=== PATIENT | female | born 1935 | race African-American/Black ===

== ENCOUNTER 2019-01-14 17:36 | Inpatient (IN) | payer MEDICARE, OTHER ==
[~2019-01-14] VITALS: Ht 154.9 cm; Wt 52.6 kg
[~2019-01-14 17:36] MED LIST: FLUT10SP BOTHNSTRLS; LISI-604 PO; LORA10TA7 PO; MELO-106 PO; METH4TAB16 PO; MONT10TA24 PO; OMEP40CA34 PO; PREG75CA PO; SIMV20TA6 PO; ZET10 PO; [UNRECOGNIZED DRUG - CODE] PO
[2019-01-14 19:34] LABS: BASOPHILS % 0.5 % (0.0-2.0); EOSINOPHILS % 1.1 % (0.0-5.0); HEMATOCRIT. 37.8 % (36.0-48.0); HEMOGLOBIN. 12.3 g/dL (12.0-16.0); LYMPHOCYTES % 29.8 % (20.0-50.0); MEAN CORPUSCULAR HEMOGLOBIN 27.8 pg (28.0-32.0); MEAN CORPUSCULAR VOLUME 85.1 fL (81.0-99.0); MONOCYTES % 9.4 % (2.0-8.0); NEUTROPHILS % 59.2 % (40.0-76.0); PLATELET 193 x1000/uL (130-400); RED BLOOD CELL COUNT 4.44 mill/uL (4.2-5.4); RED CELL DISTRIBUTION WIDTH 15.1 % (11.6-14.6)
[2019-01-14 19:37] LABS: CHLORIDE 107 mEq/L (98-107)
[2019-01-14] MEDS ORDERED: HYDRALAZINE HCL 25MG TABLET PO ONE (20:30)
[2019-01-14] MEDS ORDERED: HYDROCODONE/ACETAMINOPHEN 5/325MG TABLET PO ONE (22:15)
[2019-01-15] MEDS ORDERED: CLONIDINE 0.1MG TABLET PO SCH (06:00)
[2019-01-15 10:00] VITALS: BP 165/76
[2019-01-15] MEDS ORDERED: DEXTROSE 50% WATER 50ML SYRINGE IV PRN (11:00)
[2019-01-15] MEDS ORDERED: GUAIFENESIN 200MG/10ML SUGAR FREE UDC PO PRN (11:00)
[2019-01-15] MEDS ORDERED: DOCUSATE SODIUM 100MG CAPSULE PO PRN (11:00)
[2019-01-15] MEDS ORDERED: NA PHOS,M-B/NA PHOS,DI-BA ENEMA 118ML PR PRN (11:00)
[2019-01-15] MEDS ORDERED: IPRATROPIUM/ALBUTEROL 0.5-3(2.5)MG/3ML NEB INH PRN (11:00)
[2019-01-15] MEDS ORDERED: ACETAMINOPHEN 325MG TABLET PO PRN (11:00)
[2019-01-15] MEDS ORDERED: ACETAMINOPHEN 650MG SUPP PR PRN (11:00)
[2019-01-15] MEDS ORDERED: ONDANSETRON HCL 4MG/2ML INJ IV PRN (11:00)
[2019-01-15] MEDS ORDERED: LORAZEPAM 0.5MG TABLET PO PRN (11:00)
[2019-01-15] MEDS ORDERED: MAGNESIUM/ALUMINUM HYDROXIDE/SIMETHICONE 30ML UDC PO PRN (11:00)
[2019-01-15] MEDS ORDERED: CLONIDINE 0.1MG TABLET PO PRN (11:00)
[2019-01-15] MEDS ORDERED: DIPHENHYDRAMINE 50MG/ML VIAL IV PRN (11:00)
[2019-01-15] MEDS ORDERED: HYDROCODONE/ACETAMINOPHEN 5/325MG TABLET PO PRN (11:00)
[2019-01-15] MEDS ORDERED: PNEUMOCOCCAL 23-VAL P-SAC VAC 0.5 ML IM ONE (11:30)
[2019-01-15] MEDS: BLOOD SUGAR DIAGNOSTIC STRIP TEST SCH ×3 (11:45→21:13)
[2019-01-15 12:00] VITALS: BP 120/55
[2019-01-15] MEDS ORDERED: AMLODIPINE 5MG TABLET PO SCH (13:00)
[2019-01-15 13:03] LABS: HEMOGLOBIN. 12.4 g/dL (12.0-16.0); MEAN CORPUSCULAR HEMOGLOBIN 28.1 pg (28.0-32.0); MEAN PLATELET VOLUME 9.4 fl (7.4-10.4); PLATELET 199 x1000/uL (130-400); RED BLOOD CELL COUNT 4.41 mill/uL (4.2-5.4); RED CELL DISTRIBUTION WIDTH 14.7 % (11.6-14.6)
[2019-01-15 13:06] LABS: CHLORIDE 106 mEq/L (98-107)
[2019-01-15] MEDS: ENOXAPARIN 40MG/0.4ML SYR SUBCUT SCH (13:31)
[2019-01-15 13:36] LABS: ATYPICAL LYMPHOCYTES 1; PLATELET ESTIMATE NORMAL
[2019-01-15] MEDS: INSULIN LISPRO 100 UNITS/ML SUBCUT SCH ×3 (14:22→21:00)
[2019-01-15] MEDS: SODIUM CHLORIDE 0.45% 1,000 ML IV SCH (14:23)
[2019-01-15] MEDS ORDERED: REGADENOSON 0.4 MG/5 ML IV NR (15:00)
[2019-01-15 16:00] VITALS: BP 130/62
[2019-01-15] MEDS ORDERED: LEVOFLOXACIN 500MG PREMIX 100 ML IV NR (17:00)
[2019-01-15 17:02] LABS: CREATINE KINASE 102 IU/L (26-192)
[2019-01-15 17:03] LABS: CREATINE KINASE MB FRACTION 1.9 ng/mL (0.5-3.6)
[2019-01-15 18:00] VITALS: BP 130/62
[2019-01-15 20:00] VITALS: BP 115/67
[2019-01-15] MEDS: AMLODIPINE 5MG TABLET PO SCH (21:00)
[2019-01-16] VITALS: BP 139/61
[2019-01-16 04:00] VITALS: BP 138/77
[2019-01-16 06:21] LABS: CHLORIDE 107 mEq/L (98-107)
[2019-01-16 06:32] LABS: LDL CHOLESTEROL 128 mg/dL (5-100)
[2019-01-16 06:34] LABS: HDL CHOLESTEROL 74 mg/dL (40-59); T4 FREE 0.93 ng/dL (0.76-1.46)
[2019-01-16 06:35] LABS: BASOPHILS % 0.6 % (0.0-2.0); EOSINOPHILS % 1.1 % (0.0-5.0); HEMATOCRIT. 37.1 % (36.0-48.0); HEMOGLOBIN. 12.4 g/dL (12.0-16.0); LYMPHOCYTES % 39.1 % (20.0-50.0); MEAN CORPUSCULAR HEMOGLOBIN 28.2 pg (28.0-32.0); MEAN CORPUSCULAR VOLUME 84.5 fL (81.0-99.0); MEAN PLATELET VOLUME 9.2 fl (7.4-10.4); MONOCYTES % 11.1 % (2.0-8.0); NEUTROPHILS % 48.1 % (40.0-76.0); PLATELET 195 x1000/uL (130-400); RED BLOOD CELL COUNT 4.39 mill/uL (4.2-5.4); RED CELL DISTRIBUTION WIDTH 14.9 % (11.6-14.6)
[2019-01-16] MEDS: BLOOD SUGAR DIAGNOSTIC STRIP TEST SCH ×3 (06:56→16:45)
[2019-01-16] MEDS: SODIUM CHLORIDE 0.45% 1,000 ML IV SCH (06:56)
[2019-01-16] MEDS: INSULIN LISPRO 100 UNITS/ML SUBCUT SCH ×3 (07:01→17:15)
[2019-01-16 08:00] VITALS: BP_SYST 134; BP_SYST 156; BP_SYST 162; BP_DIAS 66; BP_DIAS 78; BP_DIAS 81
[2019-01-16] MEDS: AMLODIPINE 5MG TABLET PO SCH (08:14)
[2019-01-16] MEDS ORDERED: REGADENOSON 0.4 MG/5 ML IV ONE (12:45)
[2019-01-16] MEDS ORDERED: LEVOFLOXACIN 250MG PREMIX 50 ML IV SCH (14:00)
[2019-01-16] MEDS ORDERED: IOHEXOL-350 100 ML BOTTLE ONE (14:15)
[2019-01-16] MEDS: ENOXAPARIN 40MG/0.4ML SYR SUBCUT SCH (14:36)
[2019-01-16 16:00] VITALS: BP 156/75
[2019-01-16 16:27] VITALS: BP 156/75
[2019-01-16] MEDS ORDERED: ATORVASTATIN CALCIUM 20MG TABLET PO SCH (21:00)
== END 2019-01-16 17:25 | disposition home or self-care (01) | DRG 73 ==
LOC: ER 17:36 → 5WST 21:02 → EDBEDREQ 21:05 → EDBEDREQTM 21:05 → ENRESERV 01-15 07:34
PROVIDERS: ADMIT Internal Medicine; ATTEND Internal Medicine
DX: G90.8 Other disorders of autonomic nervous system (principal); I50.33 Acute on chronic diastolic (congestive) heart failure; I16.1 Hypertensive emergency; I31.3 Pericardial effusion (noninflammatory); E11.42 Type 2 diabetes mellitus with diabetic polyneuropathy; E78.5 Hyperlipidemia, unspecified; S09.90XA Unspecified injury of head, initial encounter; K21.9 Gastro-esophageal reflux disease without esophagitis; E11.65 Type 2 diabetes mellitus with hyperglycemia; S00.10XA Contusion of unspecified eyelid and periocular area, initial encounter; I11.0 Hypertensive heart disease with heart failure; J45.909 Unspecified asthma, uncomplicated; W18.30XA Fall on same level, unspecified, initial encounter; Y92.89 Other specified places as the place of occurrence of the external cause; Y99.8 Other external cause status; Y93.K1 Activity, walking an animal; Z91.19 Patient's noncompliance with other medical treatment and regimen; Z79.899 Other long term (current) drug therapy
CPT/HCPCS: 36415; 70486; 70551; 71045; 71275; 73030; 78452; 80061; 82550; 82553; 82962; 83036; 83880; 84439; 84443; 84484; 85379; 90732; 93005; 93017; 93306; 93880; 93970; 97162; 99285; A9500; J1650; J1815; J1956; J2405; J2785; Q9967

== ENCOUNTER 2019-09-24 11:25 | Emergency (ER) | payer OTHER ==
[~2019-09-24] VITALS: Ht 154.9 cm; Wt 60.0 kg
[~2019-09-24 11:25] MED LIST changes: -METH4TAB16 PO; +OMEP40CA12 PO; -OMEP40CA34 PO; -SIMV20TA6 PO; -ZET10 PO
[2019-09-24] MEDS ORDERED: MAGNESIUM/ALUMINUM HYDROXIDE/SIMETHICONE 30ML UDC PO STA (13:09)
[2019-09-24] MEDS ORDERED: ONDANSETRON HCL 4MG/2ML INJ IV STA (13:09)
[2019-09-24] MEDS ORDERED: VISCOUS LIDOCAINE 2% 15 ML UDC PO STA (13:09)
[2019-09-24] MEDS ORDERED: SODIUM CHLORIDE 0.9% 1,000 ML IV ONE (13:09)
[2019-09-24] MEDS ORDERED: FAMOTIDINE 20MG/2ML VIAL IV STA (13:09)
[2019-09-24 14:16] LABS: BASOPHILS % 1.1 % (0.0-2.0); EOSINOPHILS % 3.1 % (0.0-5.0); HEMATOCRIT. 42.3 % (36.0-48.0); HEMOGLOBIN. 13.7 g/dL (12.0-16.0); LYMPHOCYTES % 45.1 % (20.0-50.0); MEAN CORPUSCULAR HEMOGLOBIN 27.9 pg (28.0-32.0); MEAN CORPUSCULAR VOLUME 85.8 fL (81.0-99.0); MEAN PLATELET VOLUME 9.5 fl (7.4-10.4); MONOCYTES % 11.1 % (2.0-8.0); NEUTROPHILS % 39.6 % (40.0-76.0); PLATELET 202 x1000/uL (130-400); RED BLOOD CELL COUNT 4.92 mill/uL (4.2-5.4); RED CELL DISTRIBUTION WIDTH 14.6 % (11.6-14.6)
[2019-09-24 14:17] LABS: CLARITY URINE CLEAR (CLEAR); COLOR URINE YELLOW (YELLOW); KETONES URINE NEGATIVE (NEGATIVE); LEUKOCYTE ESTERASE URINE TRACE (NEGATIVE); NITRITE URINE NEGATIVE (NEGATIVE); OCCULT BLOOD URINE NEGATIVE (NEGATIVE); PH URINE 6.5 (4.5-8.0); PROTEIN URINE 1+ (NEGATIVE); SPECIFIC GRAVITY URINE 1.009 (1.005-1.030)
[2019-09-24 14:22] LABS: CHLORIDE 107 mEq/L (98-107)
[2019-09-24] MEDS ORDERED: MORPHINE SULFATE 2 MG/ML CPJ (NOT FOR IM USE) IV ONE (16:00)
[2019-09-24] MEDS ORDERED: ONDANSETRON HCL 4MG/2ML INJ IV ONE (16:00)
[2019-09-24] MEDS ORDERED: IOHEXOL-300 100 ML BOTTLE ONE (17:42)
[2019-09-24 18:00] VITALS: BP 179/73
== END 2019-09-24 18:15 | disposition home or self-care (01) ==
LOC: ER 11:25
DX: R10.13 Epigastric pain (principal); K44.9 Diaphragmatic hernia without obstruction or gangrene; E11.9 Type 2 diabetes mellitus without complications; E78.00 Pure hypercholesterolemia, unspecified; F03.90 Unspecified dementia, unspecified severity, without behavioral disturbance, psychotic disturbance, mood disturbance, and anxiety
CPT/HCPCS: 36415; 74177; 76705; 80053; 81003; 83690; 84484; 85025; 93005; 96361; 96374; 96375; 96376; 99284; J2270; J2405; J3490; J7030; Q9967